=== PATIENT | female | born 1990 | race American Indian/Alaskan Native ===

== ENCOUNTER 2017-07-07 16:57 | Inpatient (IN) | payer OTHER, MEDICAID ==
--- NOTE | 2017-07-07 17:06 | EDPHY ---
H & P Smoking Status: Never smoked Time Seen by Provider: 07/07/17 16:58 HPI/ROS: CHIEF COMPLAINT: Depression HISTORY OF PRESENT ILLNESS: History of depression off her medications for a week. Arrives on a mental health hold with thoughts of suicide and per the mental health hold saying " I do not want to feel like this anymore" considered to be a risk because of her recent attempt. Not eating or sleeping. Patient denies any recent medical illnesses or medical symptoms. REVIEW OF SYSTEMS: Eye: no change in vision ENT: no sore throat Cardiac: no chest pain or syncope Pulmonary: no cough or SOB Abdomen: no vomiting, diarrhea, abdominal pain Musculoskeletal: no back pain Skin: no rash Neuro: no headache Constitutional: no fever : no urinary symptoms A comprehensive 10 point review of systems is otherwise negative aside from elements mentioned in the history of present illness. PAST MEDICAL HISTORY: Asthma depression Social history: No drugs or alcohol General Appearance: Alert and conversant, cooperative. Eyes: No scleral icterus. ENT, Mouth: Normal mucous membranes. Respiratory: Normal respiratory effort, breath sounds equal, lungs are clear to auscultation. Cardiovascular: Regular rate and rhythm. Gastrointestinal: Abdomen is soft and non tender. Neurological: Alert and oriented x3. Normally conversant. Face symmetric, normal movement and sensation in all extremities. Skin: Warm and dry, no rashes. Bruise on the right knee but no other abnormalities, no lacerations. Musculoskeletal: No peripheral edema and no joint swelling. Psychiatric: Depressed affect, reluctant to make eye contact. Emergency Department course/MDM: Arrives on a mental health hold. Plan for screening laboratory and psychiatric evaluation. 2300: Signed out to Willard Lazo at this time with psychiatric evaluation pending. (Harry Helms) Constitutional: Initial Vital Signs Temperature (C) 37.1 C 07/07/17 17:11 Heart Rate 101 H 07/07/17 17:11 Respiratory Rate 22 H 07/07/17 17:11 Blood Pressure 130/95 H 07/07/17 17:11 O2 Sat (%) 97 07/07/17 17:11 O2 Delivery Mode Room Air Allergies/Adverse Reactions: amoxicillin Allergy (Verified 03/15/16 17:56) Home Medications: Medication Instructions Recorded Addamel N 03/15/16 Diazepam [Valium] 2 mg PO TID #10 tab 03/15/16 PRISTIQ 05/27/16 Synthroid 03/15/16 Medical Decision Making ED Course/Re-evaluation: 2AM: Patient has been evaluated by mental health. They are recommending inpatient psychiatric hospitalization. Hopefully [address] [place] [address]. 0428AM 07/08/17: No acute events overnight. Patient resting comfortably. ( Willard Lazo) 8:[address] Jung accepted to [address] [place] [address]. Transfer paperwork will be completed. (Charlie Navarro) Differential Diagnosis: Differential diagnosis considered for depression including functional and major depression, situational depression, medication side effect, drugs and alcohol abuse. (Harry Helms) - Data Points Laboratory Results: Laboratory Results 07/07/17 17:01 07/07/17 17:01 07/07/17 20:59 Urine Opiates Screen NEGATIVE (NEGATIVE) Urine Barbiturates NEGATIVE (NEGATIVE) Ur Phencyclidine Scrn NON-NEGATIVE H (NEGATIVE) Ur Amphetamine Screen NEGATIVE (NEGATIVE) U Benzodiazepines Scrn NEGATIVE (NEGATIVE) Urine Cocaine Screen NEGATIVE (NEGATIVE) U Marijuana (THC) Screen NEGATIVE (NEGATIVE) Medications Given: Discontinued Medications Lorazepam (Ativan) 1 mg PO ONCE ONE Stop: 07/08/17 02:24 Last Admin: 07/08/17 03:13 Dose: 1 mg Departure - Departure Disposition: [facility] IP Clinical Impression: Severe major depression Condition: Good Referrals: NONE *PRIMARY CARE P,. [Primary Care Provider] - As per Instructions
[2017-07-07 17:12] LABS: % IMMATURE GRANULYOCYTES 0.3 % (0.0-1.1); ABSOLUTE IMMATURE GRANULOCYTES 0.04 10^3/uL (0.00-0.10); ADD DIFF? NO; ADD MORPH? NO; ADD SCAN? NO; ATYPICAL LYMPHOCYTE FLAG 0 (0-99); FRAGMENT RBC FLAG 0 (0-99); HEMATOCRIT 42.5 % (38.0-47.0); HEMOGLOBIN 14.4 g/dL (12.6-16.3); LEFT SHIFT FLG 0 (0-99); LIPEMIA HEMOLYSIS FLAG 90 (0-99); MEAN CELL HEMOGLOBIN 30.8 pg (27.9-34.1); MEAN CELL HEMOGLOBIN CONCENTR. 33.9 g/dL (32.4-36.7); MEAN CELL VOLUME 90.8 fL (81.5-99.8); MEAN PLATELET VOLUME 9.9 fL (8.7-11.7); PLATELET CLUMPS FLAG 0 (0-99); PLATELET COUNT 349 10^3/uL (150-400); RED BLOOD CELL COUNT 4.68 10^6/uL (4.18-5.33); RED CELL DISTRIBUTION WIDTH 12.2 % (11.5-15.2)
[2017-07-07 17:35] LABS: ANION GAP 15 mEq/L (8-16); CALCIUM 10.3 mg/dL (8.5-10.4); CARBON DIOXIDE 22 mEq/l (22-31); CHLORIDE 104 mEq/L (97-110); CREATININE 0.6 mg/dL (0.6-1.0); ETHANOL SERUM < 10 mg/dL (0-10); GLOMERULAR FILTRATION RATE > 60; GLUCOSE 103 mg/dL (70-100); POTASSIUM 3.8 mEq/L (3.5-5.2); SALICYLATE < 1.0 mg/dL (2.0-20.0); SODIUM 141 mEq/L (134-144)
[2017-07-08] MEDS ORDERED: LORazepam 1 MG TAB PO ONE (02:23)
[2017-07-08] MEDS ORDERED: LORazepam 0.5 MG TAB PO PRN (12:14)
[2017-07-08] MEDS ORDERED: MAGNESIUM HYDROXIDE 30 ML UDCUP PO PRN (12:14)
[2017-07-08] MEDS ORDERED: SUMAtriptan 25 MG TAB PO ONE (12:14)
[2017-07-08] MEDS ORDERED: NICOTINE POLACRILEX 2 MG GUM B PRN (12:14)
[2017-07-08] MEDS ORDERED: MAG HYDROX/AL HYDROX/SIMETH 30 ML UDCUP PO PRN (12:14)
[2017-07-08] MEDS ORDERED: ACETAMINOPHEN 325 MG TAB PO PRN (12:14)
[2017-07-08] MEDS ORDERED: PROCHLORPERAZINE MALEATE 25 MG SUPPR PR PRN (14:30)
--- NOTE | 2017-07-08 15:32 | BCON ---
[f rep st] BEHAVIORAL HEALTH CONSULTATION INTERNAL MEDICINE CONSULTATION DATE OF CONSULTATION: 07/08/2017 REFERRING PHYSICIAN: Brian Jung MD REASON FOR REFERRAL: Medical clearance for inpatient behavioral health stay. HISTORY OF PRESENT ILLNESS: This patient came to the [facility] on a mental health hold from the [facility] the [facility]. She had reportedly been off her medications for depression for approximately a week, and had thoughts of suicide. She was evaluated by the mental health team and admitted for further psychiatric care. She currently complains of a throbbing headache on the right side of her head, along with nausea. She has had similar symptoms before and gets migraine headaches periodically. She says she usually takes Imitrex as well as Compazine. She was given Imitrex approximately 2 hours ago and had some relief , but still has symptoms. PAST MEDICAL HISTORY: 1. Depression. 2. Hypothyroidism. 3. History of migraine headaches. 4. History of concussions. PAST SURGICAL HISTORY: She denies any history of surgeries. MEDICATIONS: Prior to admission: 1. Acetaminophen. 2. Olanzapine 5 mg p.o. daily. 3. Gabapentin 100 mg p.o. daily p.r.n. 4. Alprazolam 1 mg p.o. daily p.r.n. 5. Dextroamphetamine/amphetamine 15 mg p.o. daily. 6. Desvenlafaxine 100 mg p.o. daily. ALLERGIES: Listed to amoxicillin. SOCIAL HISTORY: She lives alone. 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 She is a nonsmoker but has a history of smoking in the past. She denies use of substances of abuse. FAMILY HISTORY: Noncontributory. REVIEW OF SYSTEMS: Other than headache and nausea, a 10-point review of systems was negative. She specifically denies any other neurologic complaints including no weakness, numbness or tingling of the extremities. No vision changes, no difficulty swallowing. She has felt some hot and cold flashes associated with the nausea. She denies cough or dyspnea. She denies urinary frequency or dysuria. She denies vomiting, constipation, or diarrhea. PHYSICAL EXAM: VITAL SIGNS: Blood pressure is 121/78, heart rate is 75, respiratory rate is 14, oxygen saturation is 98% on room air, temperature is 36.9 degrees centigrade. Her weight is 65.8 kg for a body mass index of 26.5. GENERAL: This is a well-nourished, well-developed woman, appears her chronologic age, cooperative and in mild distress due to her headache. HEENT: Extraocular movements are intact. Pupils are dilated, reactive, equal and round. Mucous membranes are moist. Dentition is in good condition. She has an uncrowded airway, Mallampati class 1. There is scant posterior oropharyngeal mucus. NECK: Supple. HEART: Regular rate and rhythm with no murmurs, rubs, or gallops. LUNGS: Clear to auscultation bilaterally. ABDOMEN : Soft, nontender, nondistended with normoactive bowel sounds. EXTREMITIES: There is no cyanosis, clubbing, or edema. NEUROLOGIC: She is alert and oriented x3. Cranial nerves 2-12 are grossly intact. There is no focal weakness. Sensation is intact to light touch. Gait is within normal limits. There is no tremor. LABORATORY STUDIES: Drawn in the emergency department: CBC showed elevated white blood cell count at 12.26. There was a predominance of neutrophils at 10.33. There was no left shift. Serum chemistry showed a low BUN at 5. Otherwise, renal function and electrolytes were within normal limits. Glucose was very mildly elevated at 103, but this was likely not fasting. Beta hCG was negative for . Toxicology screen in the serum was negative for salicylates, acetaminophen or ethyl alcohol. Toxicology screen in the urine was non-negative for phencyclidine and was otherwise negative for substances of abuse. ASSESSMENT/RECOMMENDATIONS: 1. Mental health issues, pending further evaluation and management per Psychiatry and the mental health team. 2. Migraine with associated nausea. I will add an antiemetic and will repeat dosing of sumatriptan up to a maximum dose of 100 mg per day. Additionally, I will add p.r.n. naproxen. 3. Question of hypothyroidism. Emergency department note reports that she was on Synthroid in February of 2016, but that is not on her current prescriptions. I will add on a TSH to the labs that were drawn in the emergency department to clarify her thyroid status. 4. Positive drug screen for phencyclidine. This may be a false-positive. There are case reports that venlafaxine can cause a false positive for phencyclidine. She is on a maximum dose of desvenlafaxine, so it is conceivable that this is a false positive. 5. I see no medical contraindications to this patient's continued stay in the inpatient behavioral health unit or to any psychiatric medications or procedures. Thank you very much for including me in the care of this patient. Please do not hesitate to contact me or the hospitalist service should there be need for further medical evaluation. /[id number]/MODL MTDD
[2017-07-08] MEDS: SUMAtriptan 25 MG TAB PO PRN ×3 (15:40→19:55)
[2017-07-08] MEDS: ONDANSETRON DISINTEGRATING 4 MG TAB PO PRN (15:46)
[2017-07-08] MEDS: clonazePAM 1 MG TAB PO SCH (17:58)
[2017-07-08] MEDS: DESVENLAFAXINE 100 MG PO SCH (18:34)
--- NOTE | 2017-07-08 20:08 | BAPA ---
[f rep st] ADMISSION PSYCHIATRIC ASSESSMENT DATE OF SERVICE: 07/08/2017 CHIEF COMPLAINT: "I was brought here because of something I said to the elementary school social worker at [facility]. " HISTORY OF PRESENT ILLNESS: Patient is a 27-year-old female brought to [facility] by BPD fr om [facility] on an M1 hold that read, "Client in treatment for ongoing depression and thoughts of manzanares icide. Expressed suicide attempt last week. Unable to address safety at this time, only able to sta te 'I don't want to feel like this any more.' Patient is at imminent risk due to isolation, recent a ttempt, not eating/sleeping, unable to meet basic needs." Patient told [employer] at [facility] on Friday07/07/2017 that she was still having suicidal ideation and had been having it off and on for months, b ut for the past week she has been having daily suicidal thoughts. Patient had previously reported to her outpatient therapist, Bakari Andrade at [facility], on 07/04/2017 that she had made a suicide attem pt, but patient declined to discuss what that attempt was with the psychiatrist today. She also decl ined to tell the [employer] who placed her on the mental health hold what her plan was, but did state that she was not having any in intent to act on her plan, that it was "just thoughts." The patient has raymundo d an extremely difficult time since 06/30. She says she had a friend in 06/30 and that the anniver praveen is always a difficult time for her, but she states that this year it has been especially bad bec ause she lost another friend within the past 2 weeks, but patient declines to go into detail. She sa ys that her culture, which is [place], does not believe "naming the people we have los t." When met with the patient on behavioral health inpatient unit [address] [place] [address], she was suffering from a mi graine headache. She had gotten some temporary relief from a recent dose of Imitrex. She was sittin g up in her bed, a very depressed affect, although she was able to carry on a conversation coherently and to give details about her treatment history. She states that she still feels sad, that she has had an especially difficult time over the past 2 weeks, but said for about the last year she has had a lot of grief, which is what led her to get treatment at [facility]. She says she has been on medic ations for the last 2 years, but over the last year, she has felt like her symptoms have gotten worse . For the past 2 weeks, she said she has had the worst panic attacks, multiple times a day for the l ast 2 weeks, and not been able to sleep more than a few hours, she reports, in the last week. The pa kelsie says that she still has thoughts of suicide that come and go, but she states that she has no in tent or plan to act on those thoughts, and she is able to contract for safety while she is in the [facility]. PAST PSYCHIATRIC HISTORY: Patient is currently being treated through the [facility] at [facility]. She started getting treatment, she said, approximately 2 years ago. She has been seeanand Maciel, a nurse practitioner at [facility] in the mental health clinic, who has tried her on at least 2 or 3 different antidepressants. She said she remembers starting on Lexapro and said that it initially worked but then stopped helping . She thinks that she has tried a couple of other antidepressants, but she cannot remember their nam es. She says she has been on Pristiq for about a year, on her current dose of 100 mg daily. She say s that she has felt like that has been the most helpful medication she has taken. Patient has also been prescribed Ambien for sleep. She says she stopped taking that several months a go because she said it was no longer helping. She was, up until Friday, on Seroquel 200 mg p.o. q.h. s. for sleep and for nightmares, according to the patient, but she said that she was not consistently taking it and that, when she saw the nurse practitioner last week, he switched her to a different me dication for sleep, but she cannot remember what it is and she never picked it up at the pharmacy. S he says she has not taken any Seroquel in the last week. She says that she has also been on prazosin , but she only tried it a couple of times because she said it made her have heart palpitations and fe lt like she had a fluttering in her chest. She said she did not take it long enough to know whether or not it was helpful for the nightmares that she has. Patient has also been on Adderall for approximately the last 3 years. She says that she was never di agnosed or treated for ADHD as a child or as an adolescent. She did not get prescribed medication fo r attention until she started college, and it was originally prescribed 3 years ago by tremaine Damon er PCP in the [facility] primary care clinic. She is on Adderall XR 20 mg in the a.m., and she says that she takes immediate-release Adderall in the afternoons, occasionally. She has been on Ritalin i n the past, but she says that Adderall works better for her. She has also been prescribed Xanax by Ozzy Maciel, her mental health nurse practitioner. She says t hat she takes 1 mg tablets and she is supposed to take them whenever she has a panic attack, but she says she does not take them, has not been using them daily, even though she has been having multiple panic attacks a day for the last 2 weeks. She says she is "scared" of taking the Xanax because her P CP, Misha Dinh, told her that she could develop dependence and that she should use the medication sp aringly. She has also been prescribed Ativan in the past, but patient says that she has not needed m edicines for anxiety, because her anxiety has not been as bad until just recently. She says this past year her anxiety has progressively gotten worse, and in the last 2 weeks, it has b een the most intense. She says that, when she has panic episodes, she gets a racing heart rate, she gets diaphoresis, and she says that she sometimes throws up, she will get intense chest pain, and she says, "It feels like I'm dying," and she says that these symptoms have very rapid onset and that the y usually last anywhere from 10-20 minutes and then go away. She says she has never had a period of time like these last 2 weeks ever before. She says her anxiety and her panic have never been this in tense, and her difficulty with sleep in the past was sporadic insomnia, and she says now she has had a consistent lack of sleep for the last 2 weeks. Prior to starting her undergraduate degree at [facility] [employer], patient has no prior psychiatric history, w as never treated for any mood-related symptoms. She said that when her mother , when she was an adolescent, she did go and see the school therapist but just for a couple of visits. She has never h ad any outpatient therapy, never been hospitalized. She states that she did have a suicide attempt a bout a week ago but will not provide any details, and she says that she has had other attempts in the past but declines to go into details about them. She says she is reticent to talk about her attempt s because of in her culture, [place] culture, people "just don't talk about those things." ALLERGIES: She is allergic to amoxicillin. CURRENT MEDICATIONS: As prescribed by Ozzy Maciel are Pristiq 100 mg p.o. daily, Seroquel 200 mg p. o. q.h.s., Xanax 1 mg as needed for panic attacks, Adderall XR 20 mg daily. She has other medications reported in the emergency department, include gabapentin and Zyprexa, but delvis turner MD asked the patient about those medications, she denied taking those meds. PAST MEDICAL HISTORY: Patient denies any chronic medical conditions and she denies any past history of surgery. She does have a history of hypothyroidism; she was on Synthroid up until February of 2016 but has not used it since then. She does have a history of migraines; she has used sumatriptan in the p ast, but she says that she has not had to use it recently, but in the past she was taking sumatriptan and Compazine, for nausea associated with her migraines. SOCIAL HISTORY: The patient is . She is a member of the [employer]. She grew up in [place]. She says that her parents still live in [place]. She has a younger brother who li ves here in [place]. Patient is single. She has no children. She lives alone in [place]. She say s that she has a few friends but not a lot of social support. She is in a BS/MS program in aerospace engineering, and she is also working on getting a degree in as [employer]. 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 She says she likes her job and she says she enjoys her school work. Patient states that she served in the [employer] 2005 to 2013. 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 Patient says that she has had a lot of loss in her life but does not want to talk about it. She stat es that she lost her mother when she was younger, and she lost a friend in 06/30 attack, and she says that she recently suffered a loss but does not go into detail. She says that in the [facility] "w e don't talk about the names of people we have lost." SUBSTANCE USE HISTORY: Patient says that she "occasionally" drinks alcohol; she says maybe "a few ti mes a year." She denies smoking marijuana. She denies using any other illicit substances. Her urin e drug screen was positive for PCP, but according to Dr. Ball, he did a literature review and found some examples of false positives for people who are on desvenlafaxine, and so it is likely that is a false positive. Patient denies using any PCP. FAMILY HISTORY: Patient denied any family history of psychiatric problems. She also denied any subs tance use in her family. She says that she was diagnosed with dyslexia and ADD and another kind of l earning disability when she was 18 years old, but states that she never had those diagnoses, was neve r treated for any type of learning disability or attention deficit disorder when she was in elementar y, middle school or high school, and she denies feeling like she had any problems, when she was growi ng up, in school. ADMISSION LABORATORY: White cell count was 12.26. Red cell count was 4.68. Hemoglobin was 14.4. H ematocrit was 42.5. Platelet count was 349. Her sodium was 141. Potassium was 3.8. Chloride was 104. BUN was 5. Creatinine was 0.6. Glucose 103. Calcium 10.3. Her beta HCG was negative for . Dr. Ball did order a TSH level, which is still pending, based upon the patient's prior reported his tory of hypothyroidism and treatment with Synthroid, although she has not taken any medications in ov er a year. Patient's urine tox screen was positive for phencyclidine, although as previously reported, it is pos sible that this is a false positive, as there are some examples of patients on Pristiq who have shown up positive for PCP. Ethyl alcohol level was less than 10. Salicylates and acetaminophen were both undetectable. MENTAL STATUS EXAMINATION: This is a well-developed, appropriately groomed female se ated on her bed. She is talking quietly but coherently and logically. Her affect is flat and her mo od is depressed. Her thought process is linear and goal directed. Her thought content reveals no ev idence of psychosis. She does report having sporadic thoughts of suicide, but she denies any plans o r intent to act on those thoughts. She denies any AH, VH. She is alert and oriented x4. She report s still having high levels of anxiety. Her intellect is above average, as evidenced by her education al and occupational history, fund of knowledge, and vocabulary. Her insight and judgment both appear to be fair. DIAGNOSES: [place]: 1. Major depressive disorder, recurrent, severe, with suicidal ideation. 2. Posttraumatic stress disorder, chronic. 3. Panic disorder without agoraphobia. 4. Generalized anxiety disorder. 5. Psychosocial stressors include:. a. Lack of social support. b. Significant grief from loss of loved ones and friends. c. Stress from her rigorous academic course work. d. Cultural issues, including stigma around mental illness within the [facility]. Patient states that she does not talk to her parents or family or friends about any of her mental health issues. PLAN: 1. Admit patient to the behavioral health services inpatient unit on on an M1 hold. 2. Monitor her closely for safety and suicide precautions. Patient denies any intent or plan to act on her thoughts and is able to contract for safety in the hospital. 3. Restart patient on Pristiq. She has missed doses for the last 2 days; this may be one of the luke sons that she is having migraines. We will give her a now dose and then restart her regular dose in the a.m. Also recommend scheduled doses of clonazepam 0.5 mg t.i.d. with meals to help get her anxie ty level under control. Also will prescribe temazepam 15 mg p.o. q.h.s. scheduled, as well as Ambien 5 mg p.o. q.h.s. scheduled, to help with sleep. explained to the patient that high doses of luli odiazepines do come with a risk of developing tolerance, withdrawal symptoms and dependency, but that they are the most effective thing in the short term to manage the panic disorder, as well as get her anxiety levels to a more manageable state, where they can be treated with alternatives, including no npharmacological interventions, and MD went into some detail to explain the risks, benefits, and side effects of medications versus the empirical evidence for use of things like CBT, mindfulness-based s tress reduction, mindfulness-based cognitive behavioral therapy, biofeedback, guided imagery, visuali zation, auto-hypnosis and progressive muscle relaxation, and EMDR. MD answered patient's questions a bout these different treatment modalities and explained that the approach that the MD recommends is t o significantly increase her use of sedatives, hypnotics and anxiolytics while she is in the hospital and then gradually decrease those medications over time, as her sleep becomes more regularized and a s her anxiety gets to more manageable levels, and then to work with her outpatient therapist on some of those behavioral interventions that can help the patient regulate her emotions and manage her stre ss more effectively so that she is not having panic or anxiety as frequently and that she is getting better sleep, which will have a positive effect on her mood as well as her anxiety, will also increas e the patient's confidence in her ability to help regulate her mood and deal with her anxiety levels, so that she is able to deescalate herself. MD does recommend that the patient have another trial of prazosin, as this has been shown to be particularly useful for patients with PTSD who experience nig htmares, although patient said that, when she initially took it, she had a fluttering heart, but ther e is no indication that she was having arrhythmias, and MD questions whether or not that was a result of being on Pristiq when she initially started taking it, and it is something that MD recommends french t she be monitored for as an outpatient but that she might want to have another trial of the prazosin and see if she still has adverse side effects or if she can tolerate it, as it is more likely to be beneficial for her nightmares than either Seroquel or Zyprexa. explained the rationale for these changes in medications and the interventions that he hoped would only be necessary [facility] and could be gradually adjusted over time. Patient gave her consent to pursue this cours e of treatment and follow up with her outpatient providers. 4. Patient will engage in individual, group, and milieu therapies. 5. Patient has agreed to discuss with her outpatient therapist, Bakari Andrade at [facility], the poss ibility of incorporating other treatment modalities such as CBT, cognitive behavioral therapy for ins omnia, mindfulness-based stress reduction, biofeedback, auto-hypnosis, and EMDR, or some combination of those treatments in her outpatient work. 6. Estimated length of stay is 3-5 days. /[id number]/MODL
[2017-07-08] MEDS: ZOLPIDEM TARTRATE 5 MG TAB PO SCH (20:56)
[2017-07-08] MEDS: TEMAZEPAM 15 MG CAP PO SCH (20:56)
[2017-07-08] MEDS ORDERED: VENLAFAXINE XR 150 MG CAP PO ONE (21:00)
[2017-07-09] MEDS: clonazePAM 1 MG TAB PO SCH ×3 (08:28→18:15)
[2017-07-09] MEDS: DESVENLAFAXINE 100 MG PO SCH (08:32)
--- NOTE | 2017-07-09 12:08 | SOAPPROG ---
SOAP Progress Note Assessment/Plan: Assessment: 27 yo [place] woman dx with MDD, PTSD and Panic DO within past 12 mos. She reports significant grief/loss/trauma from deaths and combat service in [place] during [id number]. During past year, her anxiety has gotten worse. She was triggered by anniversary of 06/30 this year plus had another close friend recently. During past 2 weeks she has had daily panic attacks, not sleeping and increased thoughts of suicide. She made an attempt last week, but declines to provide details to MD. 07/09/17 11:59 Plan: 1. Switched patient to Effexor XR 150mg b/c Pristiq is not on formulary. Patient says there is no one she can ask to chart picker her meds from her apartment or go to pharmacy and get a new prescription. MD is not certain whether patient has no friends or support or whether she just doesn't want anyone to know she's in hospital. When MD asked about this, patient was vague in her response. 2. Patient slept 5 hrs last night, which is significant improvement. However, she c/o "restless" sleep and "tossing and turning." 3. Patient reports "less anxiety" in hospital. Today is first 24 hr period with TID Klonopin. Will assess it's effectiveness for anxiety. 4. Patient still has SI, but no plan or intent. She is able to contract for safety. Subjective: Met with patient and discussed with staff. Patient reports feeling "better" today. She slept 5 hrs last night, which is more sleep than she's had in past week per patient. She still reports feeling "exhausted" and "tired." She reports feeling "less anxious" since admission, but still is nervous, wringing hands during interview. MD asked if there was anyone who could bring in patient' s Pristiq from home, she said there wasn't anyone she could think of. Patient says she had almost run out of pills at home. MD offered to write a new prescription or call it in to a pharmacy, but patient said there was no one she could ask to pick it up and bring to hospital. She said she would be OK to continue taking Effexor while she was here. She reports continued thoughts of suicide, but denies any intent or plan to act on them. She is able to contract for safety while in hospital. Objective: Vital Signs Temp Pulse Resp BP Pulse Ox 36.5 C 72 16 120/73 97 07/09/17 06:00 07/09/17 06:00 07/09/17 06:00 07/09/17 06:00 07/09/17 06:00 MSE: Pleasant, quiet, wearing T-shirt, sweatpants, wrapped in blanket, sitting at table. Affect: Flat, depressed, anxious Mood: "A little better" TP: Linear , goal-directed TC: Denies AH/VH, no paranoia or delusions, has suicidal thoughts, but denies any intent or plan Insight/Judgment: Fair - Time Spent With Patient Time Spent With Patient: 20" - Pending Discharge Pending Discharge Within 24 Hours: No Pending Discharge Within 48 Hours: No ICD10 Worksheet Patient Problems: Problems Problem Status Onset Anxiety disorder Acute Major depressive disorder, recurrent, severe w/o psychotic behavior Acute Panic disorder Acute Post traumatic stress disorder (PTSD) Acute Severe major depression Acute - ICD10 Problem Qualifiers (1) Major depressive disorder, recurrent, severe w/o psychotic behavior (2) Panic disorder (3) Post traumatic stress disorder (PTSD) (4) Anxiety disorder Qualifiers: Anxiety disorder type: unspecified anxiety disorder Qualified Code(s): F41.9 - Anxiety disorder, unspecified
[2017-07-09] MEDS: ONDANSETRON DISINTEGRATING 4 MG TAB PO PRN ×2 (12:26→18:15)
[2017-07-09] MEDS: VENLAFAXINE XR 150 MG CAP PO SCH (13:00)
[2017-07-09] MEDS ORDERED: clonazePAM 0.5 MG TAB ONE (16:51)
[2017-07-09] MEDS: SUMAtriptan 25 MG TAB PO PRN ×2 (19:12→21:30)
[2017-07-09] MEDS: ZOLPIDEM TARTRATE 5 MG TAB PO SCH (20:21)
[2017-07-09] MEDS: TEMAZEPAM 15 MG CAP PO SCH (20:21)
[2017-07-09] MEDS ORDERED: TEMAZEPAM 15 MG CAP PO ONE (23:45)
[2017-07-10] MEDS: MELATONIN 3 MG TAB PO PRN ×2 (01:49→20:34)
[2017-07-10] MEDS: VENLAFAXINE XR 150 MG CAP PO SCH (08:41)
[2017-07-10] MEDS: clonazePAM 0.5 MG TAB PO SCH ×2 (08:42→11:40)
[2017-07-10] MEDS: SUMAtriptan 25 MG TAB PO PRN ×3 (10:59→20:33)
[2017-07-10] MEDS: ONDANSETRON DISINTEGRATING 4 MG TAB PO PRN ×2 (10:59→17:18)
[2017-07-10] MEDS: NAPROXEN SODIUM 220 MG TAB PO PRN (15:50)
--- NOTE | 2017-07-10 16:10 | SOAPPROG ---
SOAP Progress Note Assessment/Plan: Assessment: 27 yo [place] woman dx with MDD, PTSD and Panic DO within past 12 mos. She reports significant grief/loss/trauma from deaths and combat service in [place] during [id number]. During past year, her anxiety has gotten worse. She was triggered by anniversary of 06/30 this year plus had another close friend recently. During past 2 weeks she has had daily panic attacks, not sleeping and increased thoughts of suicide. She made an attempt last week, but declines to provide details to MD. 07/09/17 11:59 Plan: 1. Switched patient to Effexor XR 150mg b/c Pristiq is not on formulary. Patient says there is no one she can ask to berry picker her meds from her apartment or go to pharmacy and get a new prescription. MD is not certain whether patient has no friends or support or whether she just doesn't want anyone to know she's in hospital. When MD asked about this, patient was vague in her response. 2. Patient slept 5 hrs last night, which is significant improvement. However, she c/o "restless" sleep and "tossing and turning." 3. Patient reports "less anxiety" in hospital. Today is first 24 hr period with TID Klonopin. Will assess it's effectiveness for anxiety. 4. Patient still has SI, but no plan or intent. She is able to contract for safety. 07/10/17 16:06 Plan: 1. Patient says she had "restless" night's sleep. Staff report she slept 4.5 hrs. 2. Will increase Ambien to 10mg QHS. Explained recommended dose for women is 5mg and discussed r/b/se's, patient consented to higher dose. 3. Also ordered melatonin 3-6 mg QHS PRN for sleep. 4. Patient may have repeat dose of Temazepam 15mg if she is not able to sleep with help of other meds. 5. Will increase Klonopin to 1mg at 0900, 1300, and 1700 as patient reports she is still having significant daytime anxiety. 6. Patient is willing to sign in voluntarily. She would like to stay until her sleep is better regulated. 7. Patient spoke to a friend who is wiling to remove all guns and weapons from patient's home and keep them. Patient singed release for CC to confirm with friend once this is done. 8. CC made f//u appts with [facility] providers for next week. Subjective: Met with patient and discussed with staff. Patient says she is still not sleeping as well as she would like. explained that it may take awhile for her sleep to become more regular. She has not been sleeping well for several months and it's gotten alot worse for last 2 weeks. MD explained there are many factors involved, including recent triggers for her PTSD, increased nightmares, increased anxiety, panic and depression. Each of these problems will need to be addressed with medication as well as effective non-pharmacologic interventions ( including MBSR, PMR, CBT, good sleep hygiene, improved coping skills, EMDR), and these type of interventions will take some time. Patient is anxious for things to improve "right away" and may have a difficult time following through on treatment if she doesn't see results quickly enough. MD tried to reassure patient that her sxs will improve, and encouraged her to practice the skills she is learning in therapy and continue with her treatment. She is still having SI, but no plan or intent to hurt herself right now. She has contacted a friend to remove all the weapons in her home. Patient has "several guns" at her house and has agreed her friend should keep these for now. Objective: Vital Signs Temp Pulse Resp BP Pulse Ox 36.8 C 68 16 124/72 H 99 07/10/17 05:11 07/10/17 05:11 07/10/17 05:11 07/10/17 05:11 07/10/17 05:11 MSE: Calm, quiet, sitting in dining room coloring, less fidgeting and hand wringing during conversation today. Affect: Depressed Mood: "Anxious and sad " TP: Linear, goal-directed TC: Denies any AH/VH, no SI/HI, no evidence of psychosis Insight/Judgment: Fair - Time Spent With Patient Time Spent With Patient: 20" - Pending Discharge Pending Discharge Within 24 Hours: No Pending Discharge Within 48 Hours: No ICD10 Worksheet Patient Problems: Problems Problem Status Onset Anxiety disorder Acute Major depressive disorder, recurrent, severe w/o psychotic behavior Acute Panic disorder Acute Post traumatic stress disorder (PTSD) Acute Severe major depression Acute - ICD10 Problem Qualifiers (1) Major depressive disorder, recurrent, severe w/o psychotic behavior (2) Panic disorder (3) Post traumatic stress disorder (PTSD) (4) Anxiety disorder Qualifiers: Anxiety disorder type: unspecified anxiety disorder Qualified Code(s): F41.9 - Anxiety disorder, unspecified
[2017-07-10] MEDS ORDERED: clonazePAM 0.5 MG TAB PO SCH ×2 (17:00)
[2017-07-10] MEDS: clonazePAM 1 MG TAB PO SCH (17:16)
[2017-07-10] MEDS: TEMAZEPAM 15 MG CAP PO SCH (21:21)
[2017-07-10] MEDS: ZOLPIDEM TARTRATE 5 MG TAB PO SCH (21:22)
[2017-07-11] MEDS: TEMAZEPAM 15 MG CAP PO SCH ×2 (00:31→21:06)
[2017-07-11] MEDS: VENLAFAXINE XR 150 MG CAP PO SCH (08:21)
[2017-07-11] MEDS: clonazePAM 1 MG TAB PO SCH ×3 (08:21→17:11)
[2017-07-11] MEDS: SUMAtriptan 25 MG TAB PO PRN ×2 (10:33→14:26)
[2017-07-11] MEDS: ONDANSETRON DISINTEGRATING 4 MG TAB PO PRN (10:34)
--- NOTE | 2017-07-11 14:36 | SOAPPROG ---
SOAP Progress Note Assessment/Plan: Assessment: 27 yo [place] woman dx with MDD, PTSD and Panic DO within past 12 mos. She reports significant grief/loss/trauma from deaths and combat service in [place] during [id number]. During past year, her anxiety has gotten worse. She was triggered by anniversary of 06/30 this year plus had another close friend recently. During past 2 weeks she has had daily panic attacks, not sleeping and increased thoughts of suicide. She made an attempt last week, but declines to provide details to MD. 07/09/17 11:59 Plan: 1. Switched patient to Effexor XR 150mg b/c Pristiq is not on formulary. Patient says there is no one she can ask to poultry picker her meds from her apartment or go to pharmacy and get a new prescription. MD is not certain whether patient has no friends or support or whether she just doesn't want anyone to know she's in hospital. When MD asked about this, patient was vague in her response. 2. Patient slept 5 hrs last night, which is significant improvement. However, she c/o "restless" sleep and "tossing and turning." 3. Patient reports "less anxiety" in hospital. Today is first 24 hr period with TID Klonopin. Will assess it's effectiveness for anxiety. 4. Patient still has SI, but no plan or intent. She is able to contract for safety. 07/10/17 16:06 Plan: 1. Patient says she had "restless" night's sleep. Staff report she slept 4.5 hrs. 2. Will increase Ambien to 10mg QHS. Explained recommended dose for women is 5mg and discussed r/b/se's, patient consented to higher dose. 3. Also ordered melatonin 3-6 mg QHS PRN for sleep. 4. Patient may have repeat dose of Temazepam 15mg if she is not able to sleep with help of other meds. 5. Will increase Klonopin to 1mg at 0900, 1300, and 1700 as patient reports she is still having significant daytime anxiety. 6. Patient is willing to sign in voluntarily. She would like to stay until her sleep is better regulated. 7. Patient spoke to a friend who is wiling to remove all guns and weapons from patient's home and keep them. Patient singed release for CC to confirm with friend once this is done. 8. CC made f//u appts with [facility] providers for next week. 07/11/17 14:33 Plan: 1. CCM - patient slept 6 hrs and feels "better" 2. Patient is voluntary. 3. CC to schedule f/u with [facility] providers next week. 4. Anticipate d/c on Friday or Friday. Subjective: Met with patient and discussed with staff. Patient said she slept 6 hrs last night, but woke up throughout the night. This is the most sleep she has had in over 2 weeks. She reports less SI and has no intent or plan to act on thoughts at this time. Her friend is removing all weapons, especially guns, from her house and keeping them. She continues to have migraines and is using Imitrex and Zofran which she says help. Objective: Vital Signs Temp Pulse Resp BP Pulse Ox 36.6 C 59 L 14 104/68 99 07/11/17 06:00 07/11/17 06:00 07/11/17 06:00 07/11/17 06:00 07/11/17 06:00 MSE: Quiet, less restless, nervous and less fidgeting. Affect: Flat Mood: "Anxious" and depressed TP: LInear, goal-directed TC: Denies AH/VH, no evidence of psychosis, still has SI, not no intent or plan, able to contract for safety in hospital, no HI Insight/Judgment: Fair - Time Spent With Patient Time Spent With Patient: 20" - Pending Discharge Pending Discharge Within 24 Hours: No Pending Discharge Within 48 Hours: No Pending Discharge Date: 07/14/17 ICD10 Worksheet Patient Problems: Problems Problem Status Onset Anxiety disorder Acute Major depressive disorder, recurrent, severe w/o psychotic behavior Acute Panic disorder Acute Post traumatic stress disorder (PTSD) Acute Severe major depression Acute - ICD10 Problem Qualifiers (1) Major depressive disorder, recurrent, severe w/o psychotic behavior (2) Panic disorder (3) Post traumatic stress disorder (PTSD) (4) Anxiety disorder Qualifiers: Anxiety disorder type: unspecified anxiety disorder Qualified Code(s): F41.9 - Anxiety disorder, unspecified
[2017-07-11] MEDS ORDERED: PROCHLORPERAZINE MALEATE 10 MG TAB PO PRN (17:56)
[2017-07-11] MEDS: MELATONIN 3 MG TAB PO PRN (21:06)
[2017-07-11] MEDS: ZOLPIDEM TARTRATE 5 MG TAB PO SCH (21:07)
[2017-07-12] MEDS: TEMAZEPAM 15 MG CAP PO SCH (00:28)
[2017-07-12] MEDS: VENLAFAXINE XR 150 MG CAP PO SCH (08:50)
[2017-07-12] MEDS: clonazePAM 1 MG TAB PO SCH ×2 (08:50→11:56)
[2017-07-12] MEDS: NAPROXEN SODIUM 220 MG TAB PO PRN (09:01)
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
[2017-07-12 16:49] VITALS: BP 120/74; PULSE 86; RESP 10; TEMP 98; O2SAT 97
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
== END 2017-07-12 12:20 | disposition short-term general hospital (02) | DRG 885 ==
LOC: EEVIPCON 16:57 → BBEH 07-08 10:05
PROVIDERS: ADMIT Specialist; ATTEND Psychiatry & Neurology Psychiatry
DX: F33.2 Major depressive disorder, recurrent severe without psychotic features (principal); F43.12 Post-traumatic stress disorder, chronic; F41.0 Panic disorder [episodic paroxysmal anxiety]; F41.1 Generalized anxiety disorder; Z73.3 Stress, not elsewhere classified; K92.1 Melena; T76.21XA Adult sexual abuse, suspected, initial encounter; G43.909 Migraine, unspecified, not intractable, without status migrainosus
CPT/HCPCS: 80305; G0480

== ENCOUNTER 2017-07-12 12:45 | Emergency (ER) | payer OTHER, MEDICAID ==
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
--- NOTE | 2017-07-12 14:01 | CPEKG ---
Heart Rate: 72 RR Interval: 833 P-R Interval: 128 QRSD Interval: 80 QT Interval: 400 QTC Interval: 438 P Senath: 40 QRS Senath: 30 T Wave Senath: 3 EKG Severity - NORMAL ECG - EKG Impression: SINUS RHYTHM Electronically Signed By: Mari Schneider 12-Jul-2017 20:06:38
[2017-07-12 14:12] LABS: % IMMATURE GRANULYOCYTES 0.3 % (0.0-1.1); ABSOLUTE IMMATURE GRANULOCYTES 0.03 10^3/uL (0.00-0.10); ADD DIFF? NO; ADD MORPH? NO; ADD SCAN? NO; ATYPICAL LYMPHOCYTE FLAG 10 (0-99); FRAGMENT RBC FLAG 0 (0-99); HEMATOCRIT 37.2 % (38.0-47.0); HEMOGLOBIN 12.3 g/dL (12.6-16.3); LEFT SHIFT FLG 0 (0-99); LIPEMIA HEMOLYSIS FLAG 80 (0-99); MEAN CELL HEMOGLOBIN 30.4 pg (27.9-34.1); MEAN CELL HEMOGLOBIN CONCENTR. 33.1 g/dL (32.4-36.7); MEAN CELL VOLUME 91.9 fL (81.5-99.8); MEAN PLATELET VOLUME 10.2 fL (8.7-11.7); PLATELET CLUMPS FLAG 0 (0-99); PLATELET COUNT 269 10^3/uL (150-400); RED BLOOD CELL COUNT 4.05 10^6/uL (4.18-5.33); RED CELL DISTRIBUTION WIDTH 12.4 % (11.5-15.2)
[2017-07-12 14:20] LABS: INR 0.98 (0.83-1.16); PROTIME(PATIENT) 12.9 SEC (12.0-15.0)
[2017-07-12] MEDS ORDERED: ULIPRISTAL ACETATE 30 MG TAB PO ONE ×2 (14:20→17:21)
[2017-07-12] MEDS ORDERED: AZITHROMYCIN 250 MG TAB PO ONE ×2 (14:20→15:09)
[2017-07-12] MEDS ORDERED: ONDANSETRON DISINTEGRATING 4 MG TAB PO ONE (14:20)
[2017-07-12 14:21] LABS: APTT 30.6 SEC (23.0-38.0)
[2017-07-12 14:29] LABS: ANION GAP 12 mEq/L (8-16); CALCIUM 9.4 mg/dL (8.5-10.4); CARBON DIOXIDE 23 mEq/l (22-31); CHLORIDE 103 mEq/L (97-110); CREATININE 0.7 mg/dL (0.6-1.0); GLOMERULAR FILTRATION RATE > 60; GLUCOSE 81 mg/dL (70-100); POTASSIUM 4.3 mEq/L (3.5-5.2); SODIUM 138 mEq/L (134-144)
[2017-07-12 14:47] LABS: ALANINE AMINOTRANSFERASE 29 IU/L (9-52); ALBUMIN 4.2 g/dL (3.5-5.0); ALKALINE PHOSPHATASE 57 IU/L (38-126); ASPARTATE AMINOTRANSFERASE 14 IU/L (14-46); BILIRUBIN,TOTAL 0.4 mg/dL (0.1-1.4); BILIRUBIN-CONJUGATED 0.3 mg/dL (0.0-0.5); BILIRUBIN-UNCONJUGATED 0.1 mg/dL (0.0-1.1)
[2017-07-12] MEDS ORDERED: KETOROLAC 30 MG/1 ML SDV IVP ONE (14:55)
[2017-07-12] MEDS ORDERED: PROCHLORPERAZINE MALEATE 10 MG TAB PO ONE (14:56)
[2017-07-12] MEDS ORDERED: OXYCODONE/APAP 5/325 TAB PO ONE ×2 (17:56→19:51)
[2017-07-12] MEDS ORDERED: EMTRICITABINE/TENOFOVIR 200MG/300MG TAB PO ONE (17:57)
[2017-07-12] MEDS ORDERED: RALTEGRAVIR 400 MG TAB PO ONE ×2 (17:58→18:11)
[2017-07-12] MEDS ORDERED: DOXYCYCLINE 100 MG PREPACK#2 BTL TAKEHOME ONE (17:59)
[2017-07-12] MEDS: RALTEGRAVIR 400 MG TAB PO SCH (18:18)
[2017-07-12] MEDS ORDERED: DOXYCYCLINE HYCLATE 100 MG CAP/TAB ONE (18:28)
[2017-07-12] MEDS ORDERED: DOXYCYCLINE HYCLATE 100 MG CAP/TAB PO ONE (18:30)
[2017-07-12] MEDS ORDERED: PROMETHAZINE HCL 25 MG/ML INJ IVP ONE (20:09)
[2017-07-12] MEDS ORDERED: PROMETHAZINE HCL 25 MG/ML INJ ONE (20:11)
[2017-07-13] MEDS ORDERED: RALTEGRAVIR 400 MG TAB PO SCH
[2017-07-13] MEDS ORDERED: DOXYCYCLINE HYCLATE 100 MG CAP/TAB PO SCH
[2017-07-13] MEDS ORDERED: clonazePAM 1 MG TAB PO ONE ×2 (03:25→13:21)
[2017-07-13] MEDS ORDERED: OXYCODONE/APAP 5/325 TAB PO ONE (03:25)
[2017-07-13] MEDS ORDERED: PROMETHAZINE HCL 25 MG/ML INJ ONE ×2 (03:35→10:26)
[2017-07-13] MEDS ORDERED: PROMETHAZINE HCL 25 MG/ML INJ IVP ONE ×2 (03:39→10:27)
[2017-07-13 08:57] VITALS: PULSE 70
[2017-07-13] MEDS ORDERED: ACETAMINOPHEN 325 MG TAB ONE (09:20)
[2017-07-13] MEDS ORDERED: ACETAMINOPHEN 325 MG TAB PO ONE (09:21)
[2017-07-13] MEDS: RALTEGRAVIR 400 MG TAB PO SCH (09:23)
[2017-07-13] MEDS ORDERED: IBUPROFEN 600 MG TAB PO ONE ×2 (11:56→12:23)
[2017-07-13] MEDS ORDERED: ONDANSETRON DISINTEGRATING 4 MG TAB PO ONE (12:23)
[2017-07-13] MEDS ORDERED: PROMETHAZINE HCL 25 MG TAB ONE (12:28)
[2017-07-13] MEDS ORDERED: CYCLOBENZAPRINE 10 MG TAB ONE (12:28)
[2017-07-13] MEDS ORDERED: CYCLOBENZAPRINE 10 MG TAB PO ONE (12:36)
[2017-07-13] MEDS ORDERED: PROMETHAZINE HCL 25 MG TAB PO ONE (12:36)
[2017-07-13] MEDS ORDERED: LORazepam 0.5 MG TAB PO ONE (15:18)
[2017-07-13 15:29] VITALS: BP 114/66; RESP 18; TEMP 97.9; O2SAT 96
[2017-07-13] MEDS ORDERED: EMTRICITABINE/TENOFOVIR 200MG/300MG TAB PO SCH ×2 (18:00)
[2017-07-14 04:47] LABS: HEPATITIS B SURFACE ANTIBODY POSITIVE (NEGATIVE)
[2017-07-14] MEDS ORDERED: VENLAFAXINE XR 150 MG CAP PO ONE (13:21)
[2017-07-16] MEDS ORDERED: RALTEGRAVIR 400 MG TAB PO SCH
[2017-07-16] MEDS ORDERED: EMTRICITABINE/TENOFOVIR 200MG/300MG TAB PO SCH
== END 2017-07-13 15:40 ==
LOC: EDUNIT# → EEVIPCON 12:45
DX: S19.9XXA Unspecified injury of neck, initial encounter (principal); K62.5 Hemorrhage of anus and rectum; N63 Unspecified lump in breast; F32.9 Major depressive disorder, single episode, unspecified; J45.909 Unspecified asthma, uncomplicated; Y07.59 Other non-family member, perpetrator of maltreatment and neglect; Y99.8 Other external cause status
CPT/HCPCS: 96374; G0472; J1885; J2550